=== PATIENT | female | born 1930 | race Caucasian/White ===

== ENCOUNTER 2016-12-30 23:55 | Inpatient (IN) | payer MEDICARE ==
[~2016-12-30] VITALS: Ht 165.1 cm; Wt 56.7 kg
[2016-12-31 01:31] LABS: BASOPHILS 0.3 % (0.0-2.0); EOSINOPHILS 0.4 % (0-7); HEMATOCRIT 37.2 % (36.0-48.0); HEMOGLOBIN 11.6 g/dL (12-16); IMMATURE GRANULOCYTES 0.3 % (0-5); LYMPHOCYTES 18.7 % (15-50); MCH 29.8 pg (26.0-34.0); MCHC 31.2 g/dL (31.0-37.0); MCV 95.6 fL (80.0-100.0); MEAN PLATELET VOLUME 11.1 fL (7.4-10.4); MONOCYTES 7.9 % (2-11); NEUTROPHILS 72.4 % (40-80); PLATELET COUNT 129 10x3/uL (130-400); RBC 3.89 10x6/uL (4.00-5.40); RDW 13.5 % (11.5-14.5); WBC 7.9 10x3/uL (4.8-10.8)
[2016-12-31 01:39] LABS: APTT 30.3 SECONDS (22.8-39.4); INR 1.02 (0.85-1.17); PROTIME 13.3 SECONDS (11.6-15.0)
[2016-12-31 01:46] LABS: ALBUMIN 3.4 g/dL (3.4-5.0); ANION GAP 9.1 mmol/L (8-16); BILIRUBIN - TOTAL 0.32 mg/dL (0.2-1.3); CARBON DIOXIDE 30.9 mmol/L (21.0-32.0); CREATININE - SERUM 0.8 mg/dL (0.6-1.3); PROTEIN - SERUM 6.8 g/dL (6.4-8.2)
[2016-12-31 04:00] VITALS: BP 168/78
[2016-12-31 04:54] VITALS: BP 140/79; BMI 20.8
[2016-12-31] MEDS ORDERED: CALCIUM 500 + D1 TAB PO (05:38)
[2016-12-31] MEDS ORDERED: FERROUS SULFAT325 MG PO (05:39)
[2016-12-31] MEDS ORDERED: SYNTHROID50 MCG PO (05:40)
[2016-12-31] MEDS ORDERED: VITAMIN D250000 UNIT PO (05:42)
[2016-12-31] MEDS ORDERED: LISINOPRIL5 MG PO (05:44)
[2016-12-31] MEDS ORDERED: ALOPHEN PILLS5 MG PO (05:46)
[2016-12-31] MEDS ORDERED: HYDROXYZINE HCL10 MG PO (05:47)
--- NOTE | 2016-12-31 08:00 | NUR ---
AWAKE AND ALERT. ORIENTED X3 AT THIS TIME. DAUGHTER AT BEDSIDE. LUNGS ARE CLEAR BILATERALLY, NO COUGH NOTED. SKIN IS INTACT WITHOUT REDNESS. SOME EDEMA NOTED TO RIGHT PATELLA. WILL MONITOR. IV TO LEFT WRIST PATENT WITHOUT REDNESS AT INSERTION SITE. NPO AT THIS TIME. FOR POSSIBLE SURGERY.
[2016-12-31 08:50] VITALS: BP 149/59
--- NOTE | 2016-12-31 09:05 | NUR ---
REQUESTED AND GIVEN 0.5 MG DILAUDID SLOW IVP FOR C/O HEAD ACHE AND LEFT SHOULDER PAIN LEVEL 9. WILL MONITOR.
--- NOTE | 2016-12-31 09:45 | NUR ---
DR PURVIS HERE. NEW ORDERS RECEIVED. SLING PLACED TO LEFT ARM. REPORTS PAIN IMPROVED FOR NOW.
[2016-12-31 09:56] VITALS: Ht 165.1 cm; Wt 56.7 kg
--- NOTE | 2016-12-31 11:00 | NUR ---
KNEE IMMOBILIZER PLACED TO RIGHT KNEE.
[2016-12-31 12:48] VITALS: BP 140/69
--- NOTE | 2016-12-31 15:45 | NUR ---
REQUESTED BED LANDRY. UNABLE TO VOID ON SAME. UP TO BSC WITH 2 PERSON ASSIST, MAX. VOIDED 300cc CLEAR YELLOW URINE . SKIN CARE PER STAFF. REPOSTIONED IN BED FOR COMFORT.
[2016-12-31 16:49] VITALS: BP 117/70
--- NOTE | 2016-12-31 18:10 | NUR ---
SITTING UP IN BED EATING SUPPER. FAMILY AT BEDSIDE. NO CHANGES NOTED. DENIES NEEDS.
--- NOTE | 2016-12-31 19:19 | NUR ---
PATIENT IS CONFUSED ABOUT WHERE SHE IS. I REORIENTED THE PATIENT TO PLACE AND SITUATION. STATED HER PAIN IS 5/10 AND SHE WOULD LIKE PAIN MEDICATION WITH HER NIGHT TIME MEDS. PATIENT DENIES OTHER NEEDS AT THIS TIME. BED IN LOWEST POSITION AND CALL LIGHT WITHIN REACH.
[2016-12-31 20:59] VITALS: BP 149/82
[2017-01-01] VITALS (13 sets, daily range): BP systolic 119–171; BP diastolic 60–91
[2017-01-01 05:50] LABS: BASOPHILS 0.2 % (0.0-2.0); EOSINOPHILS 0.9 % (0-7); HEMATOCRIT 33.7 % (36.0-48.0); HEMOGLOBIN 10.6 g/dL (12-16); IMMATURE GRANULOCYTES 0.2 % (0-5); LYMPHOCYTES 20.7 % (15-50); MCH 30.1 pg (26.0-34.0); MCHC 31.5 g/dL (31.0-37.0); MCV 95.7 fL (80.0-100.0); MEAN PLATELET VOLUME 11.3 fL (7.4-10.4); PLATELET COUNT 116 10x3/uL (130-400); RBC 3.52 10x6/uL (4.00-5.40); RDW 13.8 % (11.5-14.5)
[2017-01-01 05:51] LABS: WBC 5.9 10x3/uL (4.8-10.8)
[2017-01-01 06:00] LABS: INR 1.03 (0.85-1.17); PROTIME 13.3 SECONDS (11.6-15.0)
[2017-01-01 06:16] LABS: CALC OSMOLALITY 278 mosm/kg (275-300); CALCIUM 8.3 mg/dL (8.5-10.1); CARBON DIOXIDE 28.4 mmol/L (21.0-32.0); CHLORIDE - SERUM 104 mmol/L (98-107); CREATININE - SERUM 0.6 mg/dL (0.6-1.3); GLUCOSE 101 mg/dL (74-106); POTASSIUM - SERUM 3.8 mmol/L (3.5-5.1); SODIUM 139 mmol/L (136-145); UREA NITROGEN 14 mg/dL (7-18); eGFR NON AFRICAN AMERICAN > 90 mL/min (90-120)
--- NOTE | 2017-01-01 07:30 | NUR ---
PATIENT OFF FLOOR TO SURGERY.
--- NOTE | 2017-01-01 10:35 | NUR ---
PATIENT RECEIVED TO FLOOR FROM PACU. VITAL SIGNS STABLE. PATIENT RESTING QUIETLY WITH EYES CLOSED. WAKES EASY WHEN SPOKE TO. DRESSING TO LEFT SHOULDER CLEAN, DRY AND INTACT. SLING AND ICE PACK IN PLACED. DRESSING TO RIGHT KNEE CLEAN, DRY AND INTACT WITH KNEE IMMOBILIZER AND ICE PACK IN PLACE. DAUGHTER PRESENT. SIDE RAILS UP X3. BED IN LOW POSITION. CALL LIGHT IN REACH. SOL ALARM ON.
--- NOTE | 2017-01-01 11:15 | NUR ---
VITAL SIGNS STABLE. SCHEDULED MEDICATION ADMINISTERED. SIDE RAILS UP X2. BED IN LOW POSITION. CALL LIGHT IN REACH. DAUGHTER PRESENT.
--- NOTE | 2017-01-01 14:12 | NUR ---
PATIENT ALERT IN BED WITH DAUGHTER AT BEDSIDE. RESPIRATIONS EVEN AND UNLABORED. SCHEDULED MEDICATION ADMINISTERED. SIDE RAILS UP X3. BED IN LOW POSITION. CALL LIGHT IN REACH. SOL ALARM ON.
--- NOTE | 2017-01-01 17:10 | NUR ---
ALERT IN BED EATING DINNER. TOLERATING WELL. SCHEDULED MEDICATION ADMINISTERED. SIDE RAILS UP X2. BED IN LOW POSITION. CALL LIGHT IN REACH.
--- NOTE | 2017-01-01 20:00 | NUR ---
ASSESSMENT PER FLOWSHEET. CONFUSED SOL BED ALARM ARIELLE ON ALARMS ACTIVATED. SR UP X3 CALL LIGHT WITHIN REACH. DRESSING TO LEFT SHOULDER INCISION C/D/I. DRESSING TO RT KNEE INCISION C/D/I WITH IMOBILIZER IN PLACE, BILAT. PLEXI PULSE BOOTS ON. IV PATENT RT WRIST OF 1/2NS AT 50CC'S/HR. SITE CLEAR. INC URINE LINENS CHANGED.
--- NOTE | 2017-01-01 21:15 | NUR ---
PT PULLS OFF DRESSING TO LEFT SHOULDER INCISION NEW DRESSING APPLIED. PT PULLS OFF SLING. PT TRYING TO CLIMB OUT OF BED. ASSISTED BACK INTO BED ATTEMPTS MADE TO RE-ORIENT UNSUCCESSFULLY. PLACED ON BEDPAN.
--- NOTE | 2017-01-01 21:30 | NUR ---
MEDS GIVEN PER MAR.
--- NOTE | 2017-01-02 | NUR ---
MEDS GIVEN PER MAR. INC URINE LINENS CHANGED.
[2017-01-02 01:30] VITALS: BP 158/65
[2017-01-02 04:00] VITALS: BP 139/66
--- NOTE | 2017-01-02 04:24 | NUR ---
INC URINE COMPLETE BATH WITH LINENS CHANGED.
[2017-01-02 05:16] LABS: HEMATOCRIT 30.9 % (36.0-48.0); HEMOGLOBIN 10.1 g/dL (12-16)
--- NOTE | 2017-01-02 07:20 | NUR ---
PATIENT WAS ATTEMPTING TO GET OOB. SHE HAS SCOOTED SIDEWAYS IN THE BEDS AND HAS HER FEET STUCK OUT THROUGH THE SIDERAILS. REPOSITIONED FOR SAFETY. OVER BED TABLE IN PLACE OVER HER LAP.
[2017-01-02 07:48] VITALS: BP 128/54
--- NOTE | 2017-01-02 08:30 | NUR ---
DAUGHTER AT THE BEDSIDE ASSISTING HER WITH HER BREAKFAST. ENCOURAGED HER TO ORDER FROM THE PATIENT'S MENU SOMETHING THAT SHE WILL LIKE. REPOSITIONED PATINET FOR COMFORT WITH DAUGHTER'S HELP. PATIENT IS PREPARING FOR A WEDDING. ATTEMPTED TO REORIENT. SHE CONFIRMS THAT SHE FELL AND MADE COMMENTS ABOUT HER HUSBANDS FOOD PREFERENCES BUT REMAINS UNORIENTED TO PLACE/TIME/SITUATION
--- NOTE | 2017-01-02 10:05 | NUR ---
ELISA GIVEN HER MEDICATIONS WITH A GLAS OF TAP WATER. SHE DID NOT DUE WELL TRYING TO SWALLOW THEM AFTER TRYING TO DRINK THROUGH A STRAY. SHE IS SITTING UP IN THE BEDISDE CHAIR. SEVERAL PEOPLE HAVE REPORTED THAT SHE HAS TRIED TO GET UP UNASSISTED AND THEY HAVE INTERSEDED. WHEN I CAME IN SHE WAS WADDING HER SHEETS UP IN PREPATATION TO GET UP FOR A LIBERTARIAN. REDIRECTED. SHE IS PLEASANT. WILL CONTINUE TO CHECK ON HER FREQUENTLY. SHE IS SITTING ON A SOL ALARM.
--- NOTE | 2017-01-02 11:31 | NUR ---
Patient Name: ZULEMA PIPER Admission Status: ER Accout number: [id number] Admission Date: 12-31-2016 : 1929 Admission Diagnosis: Attending: JIMMY Current LOS: 2 Anticipated DC Date: 01-03-2017 Planned Disposition: Fdc Facility Primary Insurance: MEDICARE A & B Discharge Planning Comments: CM MET WITH PATIENTS DAUGHTER (KAMILLA) REGARDING D/C NEEDS AND PLANS. PATIENT IS A RESIDENT AT [facility]. PATIENT WILL RETURN THERE TO A SKILLED BED. PATIENTS PCP IS DR. REGAN AND PHARMACY IS IN HOUSE AT [place]. PATIENT SHOULD DISCHARGE TOMORROW TO [facility]. CM WILL CONTINUE TO FOLLOW PATIENT WITH D/C NEEDS AND PLANS. PCP DR. REGAN IN HOUSE PHARMACY KAMILLA (DAUGHTER) [phone] [employer] Photographer: Amy Deleon Is the patient Alert and Oriented? No 0 * How many steps to enter\exit or inside your home? 0 0 * PCP DR. REGAN 0 * Pharmacy IN HOUSE AT [facility] 0 * Preadmission Environment [facility] 0 * Facility Name [facility] 0 * ADLs Partial Dependent 0 * Partial ADLs (Assistance needed) Bathing Dressing Medication Management 0 * Equipment Hospital Bed Shower Chair 0 * List name and contact numbers for known caregivers / representatives who currently or will assist patient after discharge: KAMILLA (DAUGHTER) [phone] 0 * Community resources currently utilized None 0 * Additional services required to return to the preadmission environment? Yes 0 * Can the patient safely return to the preadmission environment? Yes 0 * Has this patient been hospitalized within the prior 30 days at any hospital? No 0 Grand Total: 0
[2017-01-02 12:27] VITALS: BP 146/64
[2017-01-02 16:05] VITALS: BP 158/70
--- NOTE | 2017-01-02 18:45 | NUR ---
PATIENT SITTING IN HER BED, JANE MYERS. SHE TALKS PERIODICALLY TO AN UNSEEN PERSON IN THE BEDSIDE CHAIR. HE IS WITHOUT EVIDENCE OF DISTRESS. SHE TOOK HER TYLEENOL WITHOUT DIFFICULTY. SHE CONFIRMS THAT SHE IS HURTING BUT IS UNABLE TO GIVE A NUMBER ON THE SCALE.
[2017-01-02 19:00] VITALS: BP 129/60
--- NOTE | 2017-01-02 19:22 | NUR ---
[place] AT BEDSIDE. PATIENT IS CONFUSED ABOUT PLACE, TIME, AND SITUATION.
--- NOTE | 2017-01-02 20:20 | NUR ---
PATIENT HAD A BM. CLEANED PATIENT UP AND CHANGED LINENS WITH ASSISTANCE OF ANOTHER NURSE.
[2017-01-03 04:00] VITALS: BP 162/75
[2017-01-03 05:35] LABS: HEMATOCRIT 28.3 % (36.0-48.0); HEMOGLOBIN 9.1 g/dL (12-16)
--- NOTE | 2017-01-03 07:00 | NUR ---
REPORT RECIEVED ASSUMED CARE. PATIENT IN BED WITH IV INTACT. NO COMPLAINTS. CALL LIGHT WITHIN REACH.
[2017-01-03] MEDS ORDERED: HYDROCODONE-APA1 TAB PO (08:02)
[2017-01-03 08:13] VITALS: BP 157/73
--- NOTE | 2017-01-03 08:15 | NUR ---
ASSESSMENT COMPLETE, VS STABLE. NO COMPLAINTS AT THIS TIME. IV INTACT. DRESSING TO ARM AND KNEE CDI. PLEXI PULSES ON. CALL LIGHT WITHIN REACH. BA ON.
--- NOTE | 2017-01-03 09:23 | NUR ---
CM REASSESSMENT NOTE: PATIENT IS DISCHARGING TO [facility] BY FACILITY VAN TODAY-SCHEDULED FOR 11:00. PATIENT WILL BE IN A SKILLED BED. DAUGHTER (KAMILLA) WAS NOTIFIED AT 9:15 OF DISCHARGE. IMM DELIVERED/FILED
--- NOTE | 2017-01-03 11:14 | NUR ---
REPORT CALLED TO [facility] AT THIS TIME. PATIENT ASSISTED TO WC BY PT. TAKEN DOWN TO [facility] [place] BY [place] EMPLOYEE WITH PERSONAL BELONGINGS.
--- NOTE | 2017-01-03 11:36 | OP ---
PATIENT NAME: ZULEMA PIPER MEDICAL RECORD: [id number] :29 LOCATION:[id number] ADMISSION DATE:12/31/16 SURGEON: TAB BUSCH MD DATE OF OPERATION: 01/01/2017 PREOPERATIVE DIAGNOSIS: Right transverse patellar fracture and left greater tuberosity fracture. POSTOPERATIVE DIAGNOSIS: Right transverse patellar fracture and left greater tuberosity fracture. PROCEDURE PERFORMED: Right patella ORIF and left greater tuberosity ORIF. SURGEON: Nish Busch MD. ANESTHESIA: General with an interscalene block and a femoral block for postop pain. CONDITION: She tolerated the procedures well, was transferred to recovery room in stable condition at termination of procedure. INDICATIONS: This is a pleasant 86-year-old female that fell, had fractures of both of these limbs. It was felt that in light of the fact that she was going to have some difficulty with ambulation, elected to go ahead and repair both of them. We discussed risks, benefits, and alternatives with her daughter. She understood and wished to proceed. OPERATIVE REPORT: The patient was taken to the operating room and placed in supine position. General anesthesia was obtained. Prior to having general anesthesia, she did receive interscalene block for the shoulder and a femoral block for the leg. In the room, both sides confirmed to be the correct operative sites. They were then prepped and draped in the normal fashion. Once this was accomplished, then knee was done first. This was done by making a midline incision, this was taken down. Small arthrotomy was made. The fracture was palpated and verified to be reduced. Once it was reduced, I then placed 2 guidewires across the fracture site visualizing these on the C-arm, measured and placed 4.0 cannulated screws, placing an 18-gauge guidewire in a [id number] fashion through these 2 screws and then tightening it down. X-rays, AP and lateral were verified to show the reduction of the fracture itself. This looked appropriate; therefore, the wires were cut. She was copiously irrigated ____ was closed and then at the termination of the procedure, moved to the shoulder where a lateral incision was made. This was taken off the tip of the tuberosity downward. I split the deltoid, identified the axillary nerve, slid a plate ____ axillary nerve. Once this was in position, I placed the pin proximally and distally verifying its position. Once this was accomplished, I then proceeded to place the screws both proximally and distally, verifying on AP and lateral views that the plate was centered as well as the screws appeared appropriate. Once this was accomplished, I then took final films, everything looked to be well reduced. I therefore copiously irrigated, then closed with 2-0 Vicryl and then carmen. She was placed in a sling. She was placed back in knee immobilizer on her leg. She was awakened and transferred to recovery room in stable condition. All needle and sponge counts were correct. She did receive her Ancef per protocol. TRANSINT:[id number] Voice Confirmation ID: [id number] DOCUMENT ID: [id number] OPERATIVE REPORT [id number] ZULEMA PIPER, TAB ORTIZ MD at 1136 CC: [id number] DICTATION DATE: 01/01/17 1020 HYPERION ADMINISTRATOR: 01/01/17 1245 ADM IN [address] [place] [address]
--- NOTE | 2017-01-27 12:12 | DS ---
PATIENT:ZULEMA PIPER :28 MEDICAL RECORD: [id number] DISCHARGE SUMMARY ADMISSION DATE: 12/31/16 DISCHARGE DATE: 01/03/17 Admitted to the hospital on 12/31/2016, discharged on 01/03/2017. ADMITTING DIAGNOSES: Right patellar fracture, left greater tuberosity fracture. DISCHARGE DIAGNOSES: Right patellar fracture, left greater tuberosity fracture. ADMITTING PHYSICIAN: Nish Purvis MD. HISTORY OF PRESENT ILLNESS: This is a pleasant 86-year-old gentleman who fell. He had a complete transverse fracture of his patella and the greater tuberosity fracture on the right and the greater tuberosity fracture on the left. He was taken to the operating room on the underwent ORIF of the patella, ORIF of the left greater tuberosity, he tolerated these well. It was felt that on the , he could be discharged to the [facility] to continue rehabilitation for these 2 fractures. We are having initially him in a knee immobilizer, but can weightbear as tolerated with the immobilizer and then initiated passive range of motion and active range of motion gradually on his left shoulder. He is going to continue on pain meds and anticoagulation with plans to see us back in the office in about 10-14 days. TRANSINT:[id number] Voice Confirmation ID: [id number] DOCUMENT ID: [id number] TAB PURVIS MD at 1212 CC: [id number] DICTATION DATE: 01/17/17 1433 CHIEF DRAFTER: 01/18/17 0440 DIS IN 01/03/17 [address] [place] [address]
== END 2017-01-03 14:19 | DRG 493 ==
LOC: D.ER 23:55 → D.MS 12-31 01:58
PROVIDERS: Emergency Medicine; ADMIT Orthopaedic Surgery Sports Medicine
PROC: 0QSD04Z Reposition Right Patella with Internal Fixation Device, Open Approach (ICD-10-PCS; principal; 2017-01-01 08:00)
PROC: 0PSD04Z Reposition Left Humeral Head with Internal Fixation Device, Open Approach (ICD-10-PCS; 2017-01-01 08:00)
DX: S42.252A Displaced fracture of greater tuberosity of left humerus, initial encounter for closed fracture (principal); S82.031A Displaced transverse fracture of right patella, initial encounter for closed fracture; W01.0XXA Fall on same level from slipping, tripping and stumbling without subsequent striking against object, initial encounter; Y92.129 Unspecified place in nursing home as the place of occurrence of the external cause; Y99.9 Unspecified external cause status; I34.1 Nonrheumatic mitral (valve) prolapse; I10 Essential (primary) hypertension; F03.90 Unspecified dementia, unspecified severity, without behavioral disturbance, psychotic disturbance, mood disturbance, and anxiety; H54.41 Blindness, right eye, normal vision left eye; J44.9 Chronic obstructive pulmonary disease, unspecified; E78.5 Hyperlipidemia, unspecified; M85.80 Other specified disorders of bone density and structure, unspecified site; E55.9 Vitamin D deficiency, unspecified; K21.9 Gastro-esophageal reflux disease without esophagitis; E03.9 Hypothyroidism, unspecified; D64.9 Anemia, unspecified; R51 Headache

== ENCOUNTER → 2017-08-04 10:59 | Outpatient (CLI) | payer MEDICARE ==
[2016-12-31 09:56] VITALS: BMI 20.8
[~2017-08-04 10:59] MED LIST: ALOPHEN PILLS5 MG PO; CALCIUM 500 + D1 TAB PO; FERROUS SULFAT325 MG PO; HYDROCODONE-APA1 TAB PO; HYDROXYZINE HCL10 MG PO; LISINOPRIL5 MG PO; SYNTHROID50 MCG PO; VITAMIN D250000 UNIT PO
== END | disposition home or self-care (01) ==
LOC: D.CT 10:59
DX: R51 Headache (principal)